=== PATIENT | female | born 1940 | race Caucasian/White ===

== ENCOUNTER 2016-12-18 05:49 | Day surgery (SDC) | payer MEDICARE, OTHER ==
--- NOTE | ~2016-12-18 | OP ---
Record Of Operation [facility] [address] [place]. [address] NAME: FRANCO CARRASQUILLO : 42 [place]US : [place] [facility] [place] [id number] AGE: 76 ADM/REG DATE : 12/18/16 MR#: [id number] REPORT SERV DATE: 12/18/16 DICTATED BY: MARIA FERNANDA EUCEDA JR. 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 NAME OF OPERATION: Diagnostic and therapeutic bronchoscopy, endobronchial ultrasound with multiple fine-needle aspirations, harry stations 4L and 10L. SURGEON: Maria Fernanda Euceda M.D. RESIDENT SURGEON: Dr. Harvey Castillo. ANESTHESIA: [facility], [place], [facility]. FINDINGS: The patient was noted to have pathologic lymphadenopathy extending along the left main pulmonary artery towards the left mainstem bronchus. This was an extension of a large lymph node conglomeration that began in AP window and extended into the left main stem bronchial region. We could not get to the AP window portion, but we could get to the 10L with our extension of the tumor along the left mainstem bronchus. We could also see some small 4L lymph nodes. Touch preps of the 10L lymph node sample were positive for metastatic squamous cell carcinoma. There was a lot of necrosis. This was the same harry distribution extending from the AP window region. The 4L lymph node was much smaller. Touch preps demonstrated lymphocytes but no obvious tumor. From PET-CT scan and endobronchial ultrasound, this appears to be a left upper lobe squamous cell carcinoma that was extending into the AP window region down to the left main stem bronchial region. The left paratracheal lymph node and subcarinal lymph nodes do not look positive for tumor cells. This is a bulky 3A disease. She is not a surgical candidate. DETAILS OF OPERATION: After adequate general anesthesia, the patient was intubated with an LMA. Diagnostic and therapeutic bronchoscopy was noted. There was extrinsic compression of the left main stem bronchus. The left lower lobe bronchus had some narrowing. There were no endobronchial lesions. On endobronchial ultrasound, there was pathologic lymphadenopathy along the left main stem bronchial region just right along the left upper lobe takeoff. This distribution extended along the main pulmonary artery. There were smaller nodes in the left paratracheal and subcarinal regions. Re-biopsy of the left paratracheal lymph nodes which were negative for any malignant cells. Lymphocytes were present. In the AP window lymph node distribution extending down on to the left mainstem bronchus, there were clearly malignant cells with a lot of necrosis. It is positive for metastatic squamous cell carcinoma. Additional material was sent for cell block. Final pathology is pending. The patient tolerated the procedure well and taken back to recovery room in stable condition. Adequate hemostasis was obtained. Record Of Operation [address] [place]. [address] NAME: FRANCO CARRASQUILLO : 44 STATUS : REG [facility]#: [id number] AGE: 76 ADM/REG DATE : 12/18/16 MR#: [id number] REPORT SERV DATE: 12/18/16 DICTATED BY: MARIA FERNANDA EUCEDA JR. DATE: 12/18/16 REPORT STATUS : Draft TRANSCRIBED BY: JUANY DATE: 12/18/16 MARTINE/JUANY Maria Fernanda Euceda Jr., M.D. / [id number] CC: Rossi Roberts Jr., M.D. Derek W Holland, M.D.
[~2016-12-18 05:49] MED LIST: ASA5GR PO; ASAB PO; B121000P IM; COREG12 PO; EFFIENT10 PO; FERROUS SULF325 M1 PO; LIPITOR80 MG PO; REMICADE IV; SEPTRA1 TAB PO; VITD PO; X5 PO
[2016-12-18 06:17] LABS: HEMATOCRIT 36.3 % (36.0-48.0); HEMOGLOBIN 11.9 g/dL (12.0-16.0)
[2016-12-18 06:28] LABS: CALCIUM, SERUM 9.5 MG/DL (8.5-10.4); CHLORIDE, SERUM 111 MMOL/L (96-112); CO2 (CARBON DIOXIDE) 21 MMOL/L (24-34); GFR AFRICAN AMERICAN 34 ML/MIN (>=60); GFR NON AFRICAN AMERICAN 29 ML/MIN (>=60); GLUCOSE, SERUM 92 MG/DL (60-99); POTASSIUM, SERUM 4.2 MMOL/L (3.5-5.3); SODIUM, SERUM 141 MMOL/L (135-148)
[2016-12-18 06:31] LABS: BUN (BLOOD UREA NITROGEN) 48 MG/DL (6-23)
== END 2016-12-18 23:59 | disposition home or self-care (01) ==
LOC: DMU 05:49
PROVIDERS: Anesthesiology; Thoracic Surgery (Cardiothoracic Vascular Surgery)
PROC: 07B74ZX Excision of Thorax Lymphatic, Percutaneous Endoscopic Approach, Diagnostic (ICD-10-PCS; principal; 2016-12-18 08:00)
DX: C77.1 Secondary and unspecified malignant neoplasm of intrathoracic lymph nodes (principal); C34.12 Malignant neoplasm of upper lobe, left bronchus or lung; J44.9 Chronic obstructive pulmonary disease, unspecified; I25.10 Atherosclerotic heart disease of native coronary artery without angina pectoris; F41.9 Anxiety disorder, unspecified; N18.3 Chronic kidney disease, stage 3 (moderate); E78.00 Pure hypercholesterolemia, unspecified; E78.2 Mixed hyperlipidemia; M19.90 Unspecified osteoarthritis, unspecified site; K50.90 Crohn's disease, unspecified, without complications; M81.0 Age-related osteoporosis without current pathological fracture; Z82.49 Family history of ischemic heart disease and other diseases of the circulatory system; Z87.891 Personal history of nicotine dependence; Z79.82 Long term (current) use of aspirin; Z79.899 Other long term (current) drug therapy; Z88.5 Allergy status to narcotic agent; Z90.710 Acquired absence of both cervix and uterus; Z87.442 Personal history of urinary calculi; Z98.890 Other specified postprocedural states
CPT/HCPCS: 80048; 85014; 85018; 88172; 88173; 88305; 93005; A9270-GY; C1725; J2405; J2710; J3010

== ENCOUNTER 2017-01-14 22:13 | Inpatient (IN) | payer MEDICARE, OTHER ==
--- NOTE | ~2017-01-14 | HP ---
History And Physical [address] [place]. [address] NAME: FRANCO CARRASQUILLO : 42 STATUS : ADM IN [facility]#: [id number] AGE: 76 ADM/REG DATE : 01/15/17 MR#: [id number] REPORT SERV DATE: 01/15/17 DICTATED BY: MARIA FERNANDA MENA DATE: 01/15/17 REPORT STATUS : Draft TRANSCRIBED BY: MODDamari DATE: 01/15/17 DATE OF ADMISSION: 01/15/2017 ADDENDUM: During patient's ER stay, she remained persistently hypotensive despite appropriate fluid resuscitation. She frequently had MAPs less than 65, therefore, she had to be admitted to the IMCU and placed on Levophed drip for blood pressure support. ADDITION DIAGNOSES: Septic shock. Critical care time spent on admission approximately 65 minutes. AMRIT/JUANY Maria Fernanda Mena MD / [id number] CC: Rossi Santana M.D.
--- NOTE | ~2017-01-14 | CN ---
Consultation Report [place] [address] [place]. [address] NAME: FRANCO GUY : 44 STATUS : ADM IN PAT#: [id number] AGE: 76 ADM/REG DATE : 01/15/17 MR#: [id number] REPORT SERV DATE: 01/16/17 DICTATED BY: CAMILO CASTRO DATE: 01/15/17 REPORT STATUS : Draft TRANSCRIBED BY: MODL DATE: 01/15/17 DATE OF CONSULTATION: REFERRING PHYSICIAN: Dr. Sukumar Colin. REASON FOR REFERRAL: Lung cancer. HISTORY OF PRESENT ILLNESS: Ms. Guy is a 76-year-old woman with a history of non-small cell lung cancer. She has been receiving paclitaxel and carboplatin weekly for approximately 3 weeks for stage T2, N1, M0 non-small cell lung cancer. It is squamous cell carcinoma. It is too early to know the status. She has a history of Crohn disease that has been stable. She is off medications for that. She has some heart underlying heart disease that has been stable. She is admitted with fever, chills, and hypotension. She is an ongoing cigarette smoker. REVIEW OF SYSTEMS: Positive for fatigue, shortness of breath. PHYSICAL EXAMINATION: GENERAL: Reveals a frail woman, in no acute distress. VITAL SIGNS: 98.4, 107/55, 67, 23. She has a regular rate and rhythm. There is trace edema. LUNGS: Show coarse breath sounds bilaterally. ABDOMEN: Soft. DATA REVIEW: WBC is now 4.4, it was 2.0. Hemoglobin 9.6, platelet 150,000. Creatinine is 1.72. ASSESSMENT: 1. Lung cancer on chemotherapy and radiation. We will see what her counts look like tomorrow and possibly restart radiation. 2. Febrile neutropenia with sepsis, improving on antibiotic therapy. 3. Anemia, improving. 4. Neutropenia, follow. 5. Crohn disease, doing well. HALIMA/JUANY Camilo Castro M.D. / [id number] Consultation Report [address] [place]. [address] NAME: FRANCO GUY : 44 STATUS : ADM IN PAT#: [id number] AGE: 76 ADM/REG DATE : 01/15/17 MR#: [id number] REPORT SERV DATE: 01/16/17 DICTATED BY: CAMILO CASTRO DATE: 01/15/17 REPORT STATUS : Draft TRANSCRIBED BY: MODL DATE: 01/15/17 CC: Rossi Santana M.D. Derek W Holland, M.D.
--- NOTE | ~2017-01-14 | HP ---
History And Physical [place] [address] [facility] [place]. [address] NAME: FRANCO CARRASQUILLO : 42 STATUS : ADM IN [facility]#: [id number] AGE: 76 ADM/REG DATE : 01/15/17 MR#: [id number] REPORT SERV DATE: 01/15/17 DICTATED BY: MARIA FERNANDA MENA DATE: 01/15/17 REPORT STATUS : Draft TRANSCRIBED BY: MODL DATE: 01/15/17 DATE OF ADMISSION: 01/15/2017 POINT OF ENTRY: [facility] Emergency Department. PRIMARY ONCOLOGIST: Dr. Gonzalez. PRIMARY RADIATION ONCOLOGIST: Dr. Moran. CHIEF COMPLAINT: Fevers and weakness and diarrhea. HISTORY OF PRESENT ILLNESS: Ms. Lopes is a 76-year-old female with a history of stage IIIA left lingular squamous cell lung cancer, status post recent initiation of both radiation therapy and chemotherapy, who presents to the emergency department today with reports of high-grade fevers with associated weakness and diarrhea. The patient was seen in the ER on 01/13/2017 for urinary retention. A Davis catheter was placed. Urinalysis at that time was unremarkable as were her labs. She was then discharged to home and in the last 24 hours, she developed high-grade fevers as high as 103.4 degrees Fahrenheit, chills, weakness, as well as profuse diarrhea. Initial evaluation in the emergency department was notable for a fever of 103.2 degrees Fahrenheit, pulse of 94, labs notable for a white count of 2.0. Urinalysis is positive for urinary tract infection. She was subsequently started on IV fluids and antibiotics and admitted to the Hospitalist Service. She denies any chest pain, palpitations, shortness of breath, cough, sputum production, abdominal pain, nausea, vomiting, melena, or hematochezia. REVIEW OF SYSTEMS: Comprehensive review of systems otherwise negative unless listed in the history of present illness. PREVIOUS MEDICAL HISTORY: 1. Crohn disease, formally on Remicade, quit about two months ago. 2. Nephrolithiasis. 3. Stage III-A squamous cell carcinoma of the left lung, status post recent initiation of chemotherapy and radiation. 4. Coronary artery disease with prior PCI. 5. Hyperlipidemia. 6. Osteoarthritis. 7. Chronic kidney disease, stage 3 to stage 4, baseline creatinine approximately 1.6 to 1.8. 8. Hemorrhoids. SURGICAL HISTORY: History And Physical [address] [address] NAME: FRANCO CARRASQUILLO : 44 STATUS : ADM IN [facility]#: [id number] AGE: 76 ADM/REG DATE : 01/15/17 MR#: [id number] REPORT SERV DATE: 01/15/17 DICTATED BY: MARIA FERNANDA MENA DATE: 01/15/17 REPORT STATUS : Draft TRANSCRIBED BY: JUANY DATE: 01/15/17 1. Port-A-Cath. 2. Abdominal hysterectomy. 3. PCI. 4. Bowel resections x3. 5. Back surgery. ALLERGIES: MORPHINE AND CODEINE. HOME MEDICATIONS: 1. Xanax 0.5 mg b.i.d. 2. Aspirin 81 mg daily. 3. Atorvastatin 40 mg at bedtime. 4. Potassium chloride 10 mEq, frequency unknown. 5. Vitamin B12 injection, frequency and dose unknown. 6. Vitamin D, frequency and dose unknown. SOCIAL HISTORY: She is a former smoker, quit about 10 years ago. Denies alcohol. Denies illicits. FAMILY MEDICAL HISTORY: Mother with stomach cancer. Father with stroke. Sibling of melanoma. LABS AND IMAGIN. White count is 2.0, ANC is 1400, hemoglobin is 10.5, hematocrit is 31.5, and platelet count is 143. 2. Sodium is 135, potassium is 4.3, chloride 105, carbon dioxide 23, BUN 23, creatinine 1.98, glucose is 176, calcium is 8.1, protein 6.1, albumin is 2.9, bilirubin is 0.5. ALT 11, AST 11, alkaline phosphatase is 54. 3. Flu swab is negative. 4. Lactic acid is 1.6. 5. Urinalysis, specific gravity is 1.008, moderate leukocyte esterase with positive nitrites, and 36 white blood cells per high-powered field. 6. CT scan of the abdomen and pelvis done on 01/13/2017 during her previous ER visit shows no acute abdominopelvic pathology. PHYSICAL EXAMINATION: VITAL SIGNS: Temperature is 103.2 degrees Fahrenheit, pulse is 94, respirations 18, saturating 98% on room air, blood pressure 120/41. On recheck, fever is now 100.8 degrees Fahrenheit, blood pressure is now 90/64 with a pulse of 83. GENERAL: The patient is awake, alert, in no acute distress, resting comfortably in bed. She is nontoxic-appearing, but is still having some chills and rigors. HEENT: Atraumatic and normocephalic. Moist mucous membranes. Pupils are equal, round, reactive to light and accommodation. Extraocular eye movements intact. No scleral icterus. NECK: No jugular venous distention. No carotid bruits. CARDIAC: Regular rate and rhythm. No murmurs or gallops. Normal S1 and S2. LUNGS: Clear to auscultation bilaterally. No wheezes, rhonchi, or crackles. ABDOMEN: Soft, nontender, and nondistended. Good bowel sounds. No rebound, guarding, or History And Physical [address] [address] NAME: FRANCO CARRASQUILLO : 44 STATUS : ADM IN [facility]#: [id number] AGE: 76 ADM/REG DATE : 01/15/17 MR#: [id number] REPORT SERV DATE: 01/15/17 DICTATED BY: MARIA FERNANDA MENA DATE: 01/15/17 REPORT STATUS : Draft TRANSCRIBED BY: JUANY DATE: 01/15/17 rigidity. EXTREMITIES: Warm and well-perfused. No cyanosis, clubbing, or edema. SKIN: Warm and dry. PSYCHIATRIC: Affect appropriate. NEUROLOGIC: Alert and oriented x3. Cranial nerves II through XII grossly intact. Speech is normal. Gait is not assessed. ASSESSMENT: Ms. Lopes is a 76-year-old female with a history of lung cancer, status post chemotherapy radiation, who presents with 1 day of fevers, diarrhea, and chills, and found to have evidence of catheter-associated urinary tract infection as well as sepsis. Problem List: 1. Catheter-associated urinary tract infection and pyelonephritis. 2. Severe sepsis. 3. Acute kidney injury on chronic kidney disease, stage 3. 4. Hypotension. 5. Lung cancer, on chemoradiation. 6. Urinary retention. PLAN: 1. Catheter-associated urinary tract infection and pyelonephritis, present on admission. Davis catheter has been removed in the emergency department. She was given IV Rocephin here in the emergency department. Follow up urine culture. Given evidence of sepsis and pyelonephritis, I will change her antibiotics to IV cefepime. 2. Severe sepsis. The patient meets criteria with fevers, leukopenia as well as hypotension. Lactic acid is within normal limits. We will provide aggressive IV fluid hydration as well as broad-spectrum antibiotics. We will repeat a lactic acid level in three hours, checking procalcitonin level. Unfortunately, blood cultures were not obtained in the ER prior to antibiotic administration. Given severe sepsis, I will still order blood cultures, but they may have been sterilized by antibiotic administration. 3. Urinary retention. Davis catheter has been removed as I think this is catheter- associated UTI. We will not put another one in and try to see if the patient can void on her own. If not, we will reinsert the Davis catheter. 4. Acute kidney injury, on chronic kidney stage 3 to 4. IV fluid hydration, holding nephrotoxic medications, likely secondary to #1 and #2 above. 5. History of lung cancer, on chemoradiation per Oncology. 6. Hypotension. The patient's blood pressure is currently improving with aggressive IV fluid hydration. We will continue to monitor. 7. DVT prophylaxis. Heparin subcu. 8. Code Status: The patient wishes to be full code. AMRIT/JUANY Maria Fernanda Mena MD History And Physical [address] [address] NAME: FRANCO CARRASQUILLO : 44 STATUS : ADM IN [facility]#: [id number] AGE: 76 ADM/REG DATE : 01/15/17 MR#: [id number] REPORT SERV DATE: 01/15/17 DICTATED BY: MARIA FERNANDA MENA DATE: 01/15/17 REPORT STATUS : Draft TRANSCRIBED BY: MODL DATE: 01/15/17 / [id number] CC: Rossi Villagomez MD Derek W Holland, M.D. Collin Cherry, M.D.
--- NOTE | ~2017-01-14 | DS ---
Discharge Summary [facility] [address] [place]. [address] NAME: FRANCO CARRASQUILLO : 44 STATUS : ADM IN [facility]#: [id number] AGE: 76 ADM/REG DATE : 01/15/17 MR#: [id number] REPORT SERV DATE: 01/18/17 DICTATED BY: DEREK COHN DATE: 01/18/17 REPORT STATUS : Draft TRANSCRIBED BY: MODDamari DATE: 01/18/17 ADMISSION DATE: 01/15/2017 DISCHARGE DATE: 01/18/2017 DISCHARGE DIAGNOSES: 1. Urinary retention. 2. Catheter associated urinary tract infection. 3. Crohn's disease formally on Remicade, quit about 2 months ago. 4. History of nephrolithiasis. 5. Stage IIIA squamous cell carcinoma of the left lung, status post recent initiation of chemo and radiation. 6. History of coronary artery disease with PCI. 7. Hyperlipidemia. 8. Osteoarthritis. 9. Chronic kidney disease stage 3. CONSULTANTS DURING THIS HOSPITALIZATION: Zachary Crowe M.D. of Hematology/Oncology. INVASIVE PROCEDURES DONE DURING THIS HOSPITALIZATION: None. BRIEF HISTORY OF PRESENT ILLNESS: The patient is a 76-year-old female who recently had urinary retention. A Davis catheter was placed. Urinalysis at that time was unremarkable as were labs. She was discharged to home in the last 24 hours. She developed a fever of 103, chills, weakness. So, she was admitted. For detailed history and physical exam, please see note dictated by Dr. Jonny Arenas on 01/15/2017. HOSPITAL COURSE: After being admitted to the hospital, this patient's Davis catheter apparently was removed prior to her coming in, and she had again significant urinary retention. Advis catheter was placed. Again, she was placed on appropriate IV antibiotics. Urine cultures were sent. Blood cultures have remained negative. Urine culture shows Klebsiella pneumonia that is pansensitive and Davis catheter once again has been removed. She is spontaneously voiding without any difficulty. She continues on her radiation therapy. Dr. Crowe has continued to see her from a cancer standpoint and has no further recommendations at this time. This patient remained stable. She will be placed on oral medications and discharged home to recover in the home setting. DISCHARGE DISPOSITION: Home. DISCHARGE ACTIVITY: As tolerated. DISCHARGE DIET: Low sodium diet. DISCHARGE MEDICATIONS: Ciprofloxacin 500 mg p.o. twice daily for four more days to complete a 7 day course; Xanax 0.5 mg twice daily; aspirin 81 mg once daily; Lipitor 40 mg once at bedtime; potassium 10 mEq once daily; B12 injection as directed; and vitamin B2 as directed. Discharge Summary [place] [id number] [address] NAME: FRANCO CARRASQUILLO : 44 STATUS : ADM IN PAT#: [id number] AGE: 76 ADM/REG DATE : 01/15/17 MR#: [id number] REPORT SERV DATE: 01/18/17 DICTATED BY: DEREK COHN DATE: 01/18/17 REPORT STATUS : Draft TRANSCRIBED BY: JUANY DATE: 01/18/17 DISCHARGE FOLLOWUP: With Dr. Zachary Crowe as scheduled by him and with Dr. Moran in the [facility] and Dr. Tutu Parsons as scheduled previously. More than 30 minutes spent planning this patient's discharge, reconciling medications, writing prescriptions, discussing hospital care, and followup with the patient and documenting this discharge. RBOERT/JUANY Derek Cohn M.D. / [id number] CC: Rossi Mota M.D. Derek W Holland, M.D. Jonathan T Whaley, MD
[2017-01-14 23:34] LABS: BASOPHILS 0.5 %; BASOPHILS ABSOLUTE 0.01 10/3/uL (0.0-0.16); EOSINOPHILS 2.5 %; EOSINOPHILS ABSOLUTE 0.05 10/3/uL (0.0-0.53); HEMATOCRIT 31.5 % (36.0-48.0); HEMOGLOBIN 10.5 g/dL (12.0-16.0); IMMATURE GRANULOCYTES 0.5 %; IMMATURE GRANULOCYTES ABSOLUTE 0.01 10/3/uL (0.0-0.11); LYMPHOCYTES 11.5 %; LYMPHOCYTES ABSOLUTE 0.23 10/3/uL (0.67-4.30); MEAN CORPUS HGB CONC 33.3 g/dL (32.0-36.0); MEAN CORPUSCULAR HEMOGLOB 32.7 pg (26.0-34.0); MEAN CORPUSCULAR VOLUME 98.1 fL (80-100); MEAN PLATELET VOLUME 9.5 fL (9.2-13.0); MONOCYTES 14.5 %; MONOCYTES ABSOLUTE 0.29 10/3/uL (0.21-1.20); NEUTROPHILS 70.5 %; NEUTROPHILS ABSOLUTE 1.41 10/3/uL (2.02-8.40); PLATELET COUNT 143 10/3/uL (150-400); RBC DISTRIBUTION WIDTH 13.6 % (12.0-16.0); RED CELL COUNT 3.21 10/6/uL (4.0-5.6)
[2017-01-14 23:35] LABS: ER CBC TAT 0 Hrs 07 Mins
[2017-01-14 23:36] LABS: MANUAL DIFF NO %
[2017-01-14 23:46] LABS: A/G RATIO 0.9 (0.7-1.9); ALBUMIN 2.9 G/DL (3.5-5.0); ALKALINE PHOSPHATASE 54 U/L (45-117); CALCIUM, SERUM 8.1 MG/DL (8.5-10.4); CHLORIDE, SERUM 105 MMOL/L (96-112); CO2 (CARBON DIOXIDE) 23 MMOL/L (24-34); CREATININE 1.98 MG/DL (0.55-1.02); GFR AFRICAN AMERICAN 28 ML/MIN (>=60); GFR NON AFRICAN AMERICAN 24 ML/MIN (>=60); GLOBULIN 3.2 G/DL (2.5-4.1); POTASSIUM, SERUM 4.3 MMOL/L (3.5-5.3); SGOT(AST) 11 U/L (5-40); SGPT(ALT) 11 U/L (5-65); SODIUM, SERUM 135 MMOL/L (135-148); TOTAL BILIRUBIN 0.5 MG/DL (0-1.2); TOTAL PROTEIN 6.1 G/DL (6.0-8.5)
[2017-01-14 23:48] LABS: LACTATE 1.6 MMOL/L (0.3-2.4)
[2017-01-14 23:50] LABS: BUN (BLOOD UREA NITROGEN) 23 MG/DL (6-23); GLUCOSE, SERUM 176 MG/DL (60-99)
[2017-01-15] MEDS ORDERED: ASAB PO (00:33)
[2017-01-15] MEDS ORDERED: B-12 INJECTION (00:34)
[2017-01-15] MEDS ORDERED: K-TABS10 MEQ PO (00:35)
[2017-01-15] MEDS ORDERED: X5 PO (00:36)
[2017-01-15] MEDS ORDERED: LIPITOR40 PO (00:36)
[2017-01-15] MEDS ORDERED: VIT D2 (00:37)
[2017-01-15 01:07] LABS: ASCORBIC ACID (UR NOT ORDER) NEG (NEG); BILIRUBIN, URINE NEGATIVE (NEG); ER URINALYSIS TAT 0 Hrs 00 Mins; KETONE, URINE NEGATIVE (NEG); LEUKOCYTE ESTERASE(NOT OR MOD (NEG); NITRITE (URINE) POS (NEG); WBC (NOT ORDERED) (RFLEX) 36 (0-5)
[2017-01-15 01:08] LABS: INFLUENZA A SCREEN NEGATIVE (NEGATIVE); INFLUENZA B SCREEN NEGATIVE (NEGATIVE)
[2017-01-15 05:00] LABS: PROCALCITONIN 3.09 ng/mL (<0.5)
[2017-01-15 05:21] LABS: TROPONIN I <0.02 NG/ML (<0.05)
[2017-01-15 12:45] LABS: BASOPHILS 0.5 %; BASOPHILS ABSOLUTE 0.02 10/3/uL (0.0-0.16); EOSINOPHILS 1.6 %; EOSINOPHILS ABSOLUTE 0.07 10/3/uL (0.0-0.53); HEMATOCRIT 29.2 % (36.0-48.0); HEMOGLOBIN 9.6 g/dL (12.0-16.0); IMMATURE GRANULOCYTES 0.5 %; IMMATURE GRANULOCYTES ABSOLUTE 0.02 10/3/uL (0.0-0.11); LYMPHOCYTES 17.2 %; LYMPHOCYTES ABSOLUTE 0.75 10/3/uL (0.67-4.30); MANUAL DIFF NO %; MEAN CORPUS HGB CONC 32.9 g/dL (32.0-36.0); MEAN CORPUSCULAR HEMOGLOB 32.8 pg (26.0-34.0); MEAN CORPUSCULAR VOLUME 99.7 fL (80-100); MEAN PLATELET VOLUME 9.8 fL (9.2-13.0); MONOCYTES 10.1 %; MONOCYTES ABSOLUTE 0.44 10/3/uL (0.21-1.20); NEUTROPHILS 70.1 %; NEUTROPHILS ABSOLUTE 3.06 10/3/uL (2.02-8.40); PLATELET COUNT 150 10/3/uL (150-400); RBC DISTRIBUTION WIDTH 14.1 % (12.0-16.0); RED CELL COUNT 2.93 10/6/uL (4.0-5.6); WHITE BLOOD CELLS 4.4 10/3/uL (4.5-10.5)
[2017-01-15 12:58] LABS: BUN (BLOOD UREA NITROGEN) 21 MG/DL (6-23); CALCIUM, SERUM 7.9 MG/DL (8.5-10.4); CHLORIDE, SERUM 113 MMOL/L (96-112); CO2 (CARBON DIOXIDE) 19 MMOL/L (24-34); CREATININE 1.72 MG/DL (0.55-1.02); GFR AFRICAN AMERICAN 33 ML/MIN (>=60); GFR NON AFRICAN AMERICAN 29 ML/MIN (>=60); PHOSPHORUS, SERUM 3.3 MG/DL (2.5-4.5); SODIUM, SERUM 140 MMOL/L (135-148)
[2017-01-15 12:59] LABS: ALBUMIN 2.3 G/DL (3.5-5.0); GLUCOSE, SERUM 106 MG/DL (60-99); POTASSIUM, SERUM 4.5 MMOL/L (3.5-5.3)
[2017-01-15 13:44] LABS: CREATININE, URINE 31.4 MG/DL
[2017-01-16 05:37] LABS: BASOPHILS 0.6 %; BASOPHILS ABSOLUTE 0.02 10/3/uL (0.0-0.16); EOSINOPHILS 3.8 %; EOSINOPHILS ABSOLUTE 0.13 10/3/uL (0.0-0.53); HEMATOCRIT 27.2 % (36.0-48.0); IMMATURE GRANULOCYTES 0.3 %; IMMATURE GRANULOCYTES ABSOLUTE 0.01 10/3/uL (0.0-0.11); LYMPHOCYTES 22.4 %; LYMPHOCYTES ABSOLUTE 0.76 10/3/uL (0.67-4.30); MEAN CORPUS HGB CONC 33.1 g/dL (32.0-36.0); MEAN CORPUSCULAR HEMOGLOB 32.8 pg (26.0-34.0); MEAN CORPUSCULAR VOLUME 99.3 fL (80-100); MEAN PLATELET VOLUME 9.7 fL (9.2-13.0); MONOCYTES 12.4 %; MONOCYTES ABSOLUTE 0.42 10/3/uL (0.21-1.20); NEUTROPHILS 60.5 %; NEUTROPHILS ABSOLUTE 2.06 10/3/uL (2.02-8.40); PLATELET COUNT 143 10/3/uL (150-400); RBC DISTRIBUTION WIDTH 14.2 % (12.0-16.0); RED CELL COUNT 2.74 10/6/uL (4.0-5.6); WHITE BLOOD CELLS 3.4 10/3/uL (4.5-10.5)
[2017-01-16 05:42] LABS: MANUAL DIFF NO %
[2017-01-16 05:48] LABS: A/G RATIO 0.8 (0.7-1.9); ALBUMIN 2.2 G/DL (3.5-5.0); ALKALINE PHOSPHATASE 49 U/L (45-117); BUN (BLOOD UREA NITROGEN) 20 MG/DL (6-23); CALCIUM, SERUM 7.9 MG/DL (8.5-10.4); CHLORIDE, SERUM 115 MMOL/L (96-112); CO2 (CARBON DIOXIDE) 18 MMOL/L (24-34); CREATININE 1.59 MG/DL (0.55-1.02); GFR AFRICAN AMERICAN 37 ML/MIN (>=60); GFR NON AFRICAN AMERICAN 32 ML/MIN (>=60); GLOBULIN 2.9 G/DL (2.5-4.1); GLUCOSE, SERUM 89 MG/DL (60-99); POTASSIUM, SERUM 4.3 MMOL/L (3.5-5.3); SGOT(AST) 12 U/L (5-40); SGPT(ALT) 8 U/L (5-65); SODIUM, SERUM 143 MMOL/L (135-148); TOTAL BILIRUBIN 0.3 MG/DL (0-1.2); TOTAL PROTEIN 5.1 G/DL (6.0-8.5)
[2017-01-16 07:06] LABS: PROCALCITONIN 3.53 ng/mL (<0.5)
[2017-01-17 04:00] LABS: BASOPHILS 0.6 %; BASOPHILS ABSOLUTE 0.02 10/3/uL (0.0-0.16); EOSINOPHILS 1.4 %; EOSINOPHILS ABSOLUTE 0.05 10/3/uL (0.0-0.53); HEMOGLOBIN 10.2 g/dL (12.0-16.0); IMMATURE GRANULOCYTES 0.6 %; IMMATURE GRANULOCYTES ABSOLUTE 0.02 10/3/uL (0.0-0.11); LYMPHOCYTES 25.8 %; LYMPHOCYTES ABSOLUTE 0.91 10/3/uL (0.67-4.30); MEAN CORPUS HGB CONC 33.6 g/dL (32.0-36.0); MEAN CORPUSCULAR HEMOGLOB 33.4 pg (26.0-34.0); MEAN CORPUSCULAR VOLUME 99.7 fL (80-100); MEAN PLATELET VOLUME 10.3 fL (9.2-13.0); MONOCYTES 12.5 %; MONOCYTES ABSOLUTE 0.44 10/3/uL (0.21-1.20); NEUTROPHILS 59.1 %; NEUTROPHILS ABSOLUTE 2.09 10/3/uL (2.02-8.40); PLATELET COUNT 182 10/3/uL (150-400); RBC DISTRIBUTION WIDTH 14.3 % (12.0-16.0); RED CELL COUNT 3.05 10/6/uL (4.0-5.6); WHITE BLOOD CELLS 3.5 10/3/uL (4.5-10.5)
[2017-01-17 04:02] LABS: HEMATOCRIT 30.4 % (36.0-48.0); MANUAL DIFF NO %
[2017-01-17 04:13] LABS: BUN (BLOOD UREA NITROGEN) 17 MG/DL (6-23); CALCIUM, SERUM 8.4 MG/DL (8.5-10.4); CHLORIDE, SERUM 113 MMOL/L (96-112); CO2 (CARBON DIOXIDE) 20 MMOL/L (24-34); CREATININE 1.65 MG/DL (0.55-1.02); GFR AFRICAN AMERICAN 35 ML/MIN (>=60); GFR NON AFRICAN AMERICAN 30 ML/MIN (>=60); GLUCOSE, SERUM 90 MG/DL (60-99); SODIUM, SERUM 143 MMOL/L (135-148)
[2017-01-18 04:58] LABS: BASOPHILS 0.6 %; BASOPHILS ABSOLUTE 0.02 10/3/uL (0.0-0.16); EOSINOPHILS 1.8 %; EOSINOPHILS ABSOLUTE 0.06 10/3/uL (0.0-0.53); HEMATOCRIT 27.8 % (36.0-48.0); HEMOGLOBIN 9.4 g/dL (12.0-16.0); IMMATURE GRANULOCYTES 0.9 %; IMMATURE GRANULOCYTES ABSOLUTE 0.03 10/3/uL (0.0-0.11); LYMPHOCYTES 23.1 %; LYMPHOCYTES ABSOLUTE 0.77 10/3/uL (0.67-4.30); MEAN CORPUS HGB CONC 33.8 g/dL (32.0-36.0); MEAN CORPUSCULAR VOLUME 97.5 fL (80-100); MEAN PLATELET VOLUME 10.3 fL (9.2-13.0); MONOCYTES 13.5 %; MONOCYTES ABSOLUTE 0.45 10/3/uL (0.21-1.20); NEUTROPHILS 60.1 %; NEUTROPHILS ABSOLUTE 2.01 10/3/uL (2.02-8.40); PLATELET COUNT 188 10/3/uL (150-400); RBC DISTRIBUTION WIDTH 14.4 % (12.0-16.0); RED CELL COUNT 2.85 10/6/uL (4.0-5.6); WHITE BLOOD CELLS 3.3 10/3/uL (4.5-10.5)
[2017-01-18 04:59] LABS: MANUAL DIFF NO %
[2017-01-18] MEDS ORDERED: CIP5 PO (09:17)
== END 2017-01-18 11:35 | disposition home or self-care (01) | DRG 698 ==
LOC: ER 22:13 → 7NO 01-15 02:37 → IMCU 01-15 03:01 → 4EA 01-16 16:17
PROVIDERS: Hospitalist; Internal Medicine
DX: T83.518A Infection and inflammatory reaction due to other urinary catheter, initial encounter (principal); A41.9 Sepsis, unspecified organism; R65.20 Severe sepsis without septic shock; N17.9 Acute kidney failure, unspecified; D70.9 Neutropenia, unspecified; D70.1 Agranulocytosis secondary to cancer chemotherapy; N18.3 Chronic kidney disease, stage 3 (moderate); C34.12 Malignant neoplasm of upper lobe, left bronchus or lung; K50.90 Crohn's disease, unspecified, without complications; B96.1 Klebsiella pneumoniae [K. pneumoniae] as the cause of diseases classified elsewhere; I25.10 Atherosclerotic heart disease of native coronary artery without angina pectoris; F17.210 Nicotine dependence, cigarettes, uncomplicated; R50.81 Fever presenting with conditions classified elsewhere; R33.9 Retention of urine, unspecified; Z92.3 Personal history of irradiation; Z92.21 Personal history of antineoplastic chemotherapy; Z87.442 Personal history of urinary calculi; R19.7 Diarrhea, unspecified; J44.9 Chronic obstructive pulmonary disease, unspecified; Z85.118 Personal history of other malignant neoplasm of bronchus and lung; Z95.5 Presence of coronary angioplasty implant and graft; Z87.891 Personal history of nicotine dependence; Z88.5 Allergy status to narcotic agent; Z79.82 Long term (current) use of aspirin; Z79.899 Other long term (current) drug therapy; Z90.710 Acquired absence of both cervix and uterus; Z91.040 Latex allergy status
CPT/HCPCS: 71010; 74176; 77336; 77386; 80048; 80053; 80069; 81001; 82533; 82570; 83605; 83690; 83935; 84145; 84300; 84484; 85025; 87040; 87077; 87086; 87186; 87328; 87329; 87493; 87493-59; 87641; 87804; 89055; 96374; 99284; 99285; A9270-GY; C8929; J0692; J3370; Q9957